=== PATIENT | male | born 1980 | race Caucasian/White ===

== ENCOUNTER 2019-08-16 16:36 | Inpatient (IN) | payer OTHER ==
[~2019-08-16] VITALS: Ht 198.1 cm; Wt 114.3 kg
--- NOTE | 2019-08-16 16:41 | NUR ---
PT CALLED IN LOBBY, NO ANSWER
--- NOTE | 2019-08-16 16:57 | NUR ---
DR FULLER EVALUATING PT AT BEDSIDE
[2019-08-16 16:59] VITALS: BP 134/72
--- NOTE | 2019-08-16 17:06 | NUR ---
38/m BIB self c/o of foot pain, ulcer on right second digit and left hallux . The right second digit is swollen upon observation. Observed BLE swelling. Palpable pedal pulses bilaterally. Pt. reports having ulcers x 1 year and states oozing from ulcer site 2 days ago. Pt reports 9/10 pain.PmHx of gastric bypass x 4 years. Blood Sugar 134. Pt. is homeless and frequently walking.
--- NOTE | 2019-08-16 17:18 | NUR ---
LAB AT BEDSIDE
[2019-08-16 17:35] LABS: BASOPHILS # (AUTO) 0.1 K/uL (0.00-0.22); BASOPHILS % (AUTO) 1.2 % (0.0-2.0); EOSINOPHILS # (AUTO) 0.2 K/uL (0-0.4); EOSINOPHILS % (AUTO) 2.8 % (0.0-4.0); HEMATOCRIT 37.9 % (36-52); HEMOGLOBIN 12.9 g/dL (12.0-18.0); LYMPHOCYTES # (AUTO) 1.6 K/uL (2.0-11.5); LYMPHOCYTES % (AUTO) 25.2 % (20.5-51.1); MEAN CORPUSCULAR HEMOGLOBIN 33 pg (27-31); MEAN CORPUSCULAR HGB CONC 34 g/dL (33-37); MEAN CORPUSCULAR VOLUME 96.6 fL (80-94); MONOCYTES # (AUTO) 0.5 K/uL (0.8-1.0); MONOCYTES % (AUTO) 8.4 % (1.7-9.3); NEUTROPHILS # (AUTO) 3.9 K/uL (1.8-7.7); NEUTROPHILS % (AUTO) 62.4 % (42.2-75.2); PLATELET COUNT (AUTO) 208 K/uL (140-450); RED BLOOD CELL COUNT(AUTO) 3.93 MIL/uL (4.20-6.10); RED CELL DISTRIBUTION WIDTH 13.5 % (11.6-13.7); WHITE BLOOD COUNT (AUTO) 6.2 K/uL (4.8-10.8)
--- NOTE | 2019-08-16 17:41 | NUR ---
XRAY AT BEDSIDE
[2019-08-16 17:44] LABS: PROTHROMBIN TIME 10.9 secs (10.8-13.4)
[2019-08-16 17:47] LABS: ALBUMIN 3.6 g/dL (3.4-5.0); ANION GAP 11.5 (8-16); CARBON DIOXIDE 28.9 mmol/L (21-32); CREATININE 0.8 mg/dL (0.6-1.3); POTASSIUM 3.4 mmol/L (3.5-5.1); TOTAL BILIRUBIN 0.8 mg/dL (0.0-1.0)
--- NOTE | 2019-08-16 18:36 | NUR ---
Pictures taken of foot ulcers bilaterally.
[2019-08-16] MEDS ORDERED: DOCUSATE SODIUM 100 MG GELCAP PO PRN (18:40)
[2019-08-16] MEDS ORDERED: ONDANSETRON 4 MG/2 ML VIAL IM/IVP PRN (18:40)
[2019-08-16] MEDS ORDERED: LORazepam 2 MG/ML VIAL IM/IVP PRN (18:40)
[2019-08-16] MEDS ORDERED: HYDROcodone/APAP 5/325 MG 1 TAB TAB PO PRN (18:40)
[2019-08-16] MEDS ORDERED: ACETAMINOPHEN 325 MG TAB PO PRN (18:40)
[2019-08-16 18:49] LABS: PROTHROMBIN TIME 10.9 secs (10.8-13.4)
[2019-08-16 19:11] LABS: PHOSPHORUS 3.5 mg/dL (2.5-4.9); THYROID STIMULATING HORMONE 2.35 uIU/mL (0.34-3.74)
[2019-08-16 19:15] VITALS: BP 109/67
--- NOTE | 2019-08-16 19:15 | NUR ---
ADMITTED 38 Y/O MALE VIA WHEELCHAIR FROM ER. ENDORSED BY AM SHIFT RN. PATIENT IS AOX4. VITAL SIGNS TAKEN AND RECORDED. DENIES PAIN. PATIENT IS ON MODIFIED CODE. NKA. TELE MONITOR ATTACHED. NOTED 2ND DIGIT R FOOT ULCER AND 4TH DIGIT LEFT FOOT ULCER. BILATERAL LEG SWELLING NOTED. WITH IV HEPLOCK ON L ARM GAUGE 20. INTACT AND PATENT. PATIENT WAS ABLE TO TRANSFER FROM WHEELCHAIR TO BED BY HIMSELF. NO SOB NOTED. RESPIRATION EVEN AND UNLABORED. PLAN OF CARE DISCUSSED. KEPT COMFORTABLE. CALL LIGHT WITHIN REACH AT ALL TIMES.
--- NOTE | 2019-08-16 19:18 | NUR ---
Patient will be admitted to care of . Admited to Med-SUrg. Will go to room 104B. Belongings list completed and brought with pt. VSS. Report given to RN. Alicia.
[2019-08-16] MEDS ORDERED: POTASSIUM CHLORIDE 10 MEQ TABER PO SCH (21:55)
[2019-08-16] MEDS ORDERED: CLINDAMYCIN 600 MG/4 ML VIAL ONE (21:56)
[2019-08-16] MEDS: NACL 0.9% 1,000 ML IV SCH (22:12)
--- NOTE | 2019-08-16 22:12 | NUR ---
ADMINISTER DUE MEDS PER MD ORDER. NO A/R NOTED. NO C/O PAIN. CALL LIGHT WITHIN REACH.
[2019-08-16] MEDS: CLINDAMYCIN 600 MG in DEXTROSE 5% 50 ML IV SCH (22:13)
[2019-08-16] MEDS: DOCUSATE SODIUM 100 MG GELCAP PO SCH (22:31)
[2019-08-16] MEDS: LACTOBACILLUS RHAMNOSUS GG 1 EACH CAP PO SCH (22:35)
--- NOTE | 2019-08-16 23:00 | NUR ---
SCD MACHINE NOT APPLIED. PT ALREADY HAD HEPARIN SUBQ GIVEN X 1. BLE WITH EDEMA.
--- NOTE | 2019-08-16 23:49 | NUR ---
ADMINISTER K DUR 20 MEQ PO GIVEN ORDERED FOR POTASSIUM 3.4. TOLERATED WELL.
[2019-08-17] VITALS: BP 112/79
--- NOTE | 2019-08-17 | NUR ---
PATIENT IS ON NPO POST MIDNIGHT.
--- NOTE | 2019-08-17 01:15 | NUR ---
PATIENT IS ASLEEP. NO DISTRESS NOTED.
[2019-08-17 01:20] LABS: APPEARANCE,URINE CLOUDY (CLEAR); BILIRUBIN,URINE NEGATIVE (NEGATIVE); BLOOD, URINE 3+ (NEGATIVE); COLOR,URINE BROWN (YELLOW); LEUKOCYTE ESTERASE ,URINE NEGATIVE (NEGATIVE); NITRITE, URINE NEGATIVE (NEGATIVE); UGLUCOSE NEGATIVE (NEGATIVE)
[2019-08-17 01:26] LABS: BARBITURATE, URINE NEG. ng/ml (NEG <=200); BENZODIAZEPINE, URINE NEG. ng/mL (NEG <=200); CANNABINOID, URINE NEG. ng/mL (NEG <=50); COCAINE, URINE NEG. ng/mL (NEG <=300); OPIATE, URINE NEG. ng/mL (NEG <=2000); PHENCYCLIDINE SCREEN,URINE NEG. ng/mL (NEG <=25)
[2019-08-17 01:32] LABS: RBC,URINE TOO NUMEROUS TO COUN /HPF (0-5)
[2019-08-17 01:33] LABS: CALCIUM OXALATE CRYSTALS,UR 0-5 /HPF (None Seen)
--- NOTE | 2019-08-17 03:00 | NUR ---
PATIENT IS SLEEPING. RESPIRATION EVEN AND UNLABORED. NOT IN ANY ACUTE DISTRESS.
[2019-08-17] MEDS ORDERED: CLINDAMYCIN 600 MG/4 ML VIAL ONE (04:58)
[2019-08-17] MEDS: CLINDAMYCIN 600 MG in DEXTROSE 5% 50 ML IV SCH ×3 (05:14→20:42)
--- NOTE | 2019-08-17 05:17 | NUR ---
ADMINISTERED CLEOCIN IVPB. TOLERATED WELL. NO A/R NOTED.
[2019-08-17 07:20] LABS: BASOPHILS % (AUTO) 0.4 % (0.0-2.0); EOSINOPHILS # (AUTO) 0.2 K/uL (0-0.4); EOSINOPHILS % (AUTO) 4.8 % (0.0-4.0); HEMATOCRIT 37.7 % (36-52); HEMOGLOBIN 12.6 g/dL (12.0-18.0); LYMPHOCYTES # (AUTO) 1.8 K/uL (2.0-11.5); LYMPHOCYTES % (AUTO) 38.6 % (20.5-51.1); MEAN CORPUSCULAR HEMOGLOBIN 33 pg (27-31); MEAN CORPUSCULAR HGB CONC 33 g/dL (33-37); MONOCYTES # (AUTO) 0.4 K/uL (0.8-1.0); MONOCYTES % (AUTO) 8.5 % (1.7-9.3); NEUTROPHILS # (AUTO) 2.2 K/uL (1.8-7.7); NEUTROPHILS % (AUTO) 47.7 % (42.2-75.2); PLATELET COUNT (AUTO) 204 K/uL (140-450); RED BLOOD CELL COUNT(AUTO) 3.84 MIL/uL (4.20-6.10); RED CELL DISTRIBUTION WIDTH 13.7 % (11.6-13.7); WHITE BLOOD COUNT (AUTO) 4.6 K/uL (4.8-10.8)
--- NOTE | 2019-08-17 07:20 | NUR ---
ENDORSEMENT GIVEN AT BEDSIDE TO AM SHIFT RN FOR CONTINUITY OF CARE. NOT IN ANY ACUTE DISTRESS.
--- NOTE | 2019-08-17 07:36 | NUR ---
SHIFT REPORT RECEIVED FROM SWITCHING CLERK NURSE. PT IS IN BED AT THIS TIME. HAVE A BEDSIDE SCAN. NO COMPLAINS OF PAIN. CALL LIGHT IN REACH.
[2019-08-17 07:42] LABS: ANION GAP 7.4 (8-16); CARBON DIOXIDE 31.7 mmol/L (21-32); CREATININE 0.7 mg/dL (0.6-1.3); POTASSIUM 4.1 mmol/L (3.5-5.1)
[2019-08-17 08:00] VITALS: BP 108/69
[2019-08-17] MEDS: LACTOBACILLUS RHAMNOSUS GG 1 EACH CAP PO SCH (08:27)
[2019-08-17] MEDS: DOCUSATE SODIUM 100 MG GELCAP PO SCH (08:27)
--- NOTE | 2019-08-17 09:30 | NUR ---
PT IS RESTING IN BED. NO DISTRESS NOTED. NO COMPLAINS OF PAIN. WILL CONTINUE TO MONITOR. CALL LIGHT IN REACH.
--- NOTE | 2019-08-17 10:30 | NUR ---
PT WAS TAKEN TO SHOWER IN WHEELCHAIR. PT AMBULATED FROM WHEELCHAIR TO SHOWER. SHOWER DONE. NO DISTRESS. NO COMPLAINS OF PAIN. PT BACK IN ROOM. WILL CONTINUE TO MONITOR. CALL LIGHT IN REACH.
[2019-08-17] MEDS: NACL 0.9% 1,000 ML IV SCH ×2 (11:31→20:51)
--- NOTE | 2019-08-17 12:47 | NUR ---
PT IS RESTING IN BED. NO DISTRESS NOTED. NO COMPLAINS OF PAIN. WILL CONTINUE TO MONITOR. CALL LIGHT IN REACH.
--- NOTE | 2019-08-17 14:54 | NUR ---
PT IS SLEEPING IN BED. PT RESPONSIVE WHEN CALLED. NO DISTRESS NOTED. NO COMPLAINS OF PAIN. PT SAYS HE HUNGRY. RELAYED INFO TO . PT WILL HAVE A SANDWICH. WILL CONTINUE TO MONITOR. CALL LIGHT IN REACH.
[2019-08-17 16:00] VITALS: BP 120/66
--- NOTE | 2019-08-17 18:48 | NUR ---
PT IS LYING IN BED. PT HAD DINNER. NO DISTRESS NOTED. WILL CONTINUE TO MONITOR. CALL LIGHT IN REACH.
--- NOTE | 2019-08-17 19:34 | NUR ---
SHIFT REPORT GIVEN TO CERTIFIED VEHICLE FIRE INVESTIGATOR NURSE. PT IS IN STABLE CONDITION. CALL LIGHT IN REACH.
--- NOTE | 2019-08-17 19:35 | NUR ---
RECEIVED PT IN STABLE CONDITION FROM AM NURSE. PT IS AWAKE,ALERT.ORIENTED X4. MED SURG PT. WITH NO C/O ANY DISCOMFORT NOR PAIN NOTED. WITH IVF INFUSING WELL ON THE LT HAND G#22. CLEAR AND PATENT. BLE EDEMA, RT FOOT 2 BD DIGIT TOE ULCER , [employer] OPERATORS. NO DRAIN NOTED. PLAN OF CARE DISCUSSED AND VERBALIZED UNDERSTANDING. BED ON LOW POSITION. CALL LIGHT AND URINALS WITHIN EASY REACH.WILL CONTINUE TO MONITOR.
--- NOTE | 2019-08-17 21:00 | NUR ---
DUE ANTIBIOTICS GIVEN ORDERED. NO C/O ANY DISCOMFORT.
--- NOTE | 2019-08-17 23:00 | NUR ---
MADE ROUNDS . ASLEEP. NO S/S OF ANY DISCOMFORT/PAIN NOTED.
[2019-08-18] VITALS: BP 127/75
--- NOTE | 2019-08-18 | NUR ---
INSTRUCTED PT ABOUT NPO STATUS FOR SURGERY . VERBALIZED UNDERSTANDING.
--- NOTE | 2019-08-18 02:00 | NUR ---
MADE ROUNDS. PT SLEEPING. NO S/S OF ANY DISCOMFORT NOTED.
[2019-08-18] MEDS: NACL 0.9% 1,000 ML IV SCH ×2 (03:56→18:06)
--- NOTE | 2019-08-18 04:00 | NUR ---
PT HAS NO C/O ANY PAIN DURING THE NIGHT.
[2019-08-18 04:32] LABS: BASOPHILS # (AUTO) 0.1 K/uL (0.00-0.22); BASOPHILS % (AUTO) 0.9 % (0.0-2.0); EOSINOPHILS # (AUTO) 0.2 K/uL (0-0.4); EOSINOPHILS % (AUTO) 3.5 % (0.0-4.0); HEMATOCRIT 41.5 % (36-52); HEMOGLOBIN 13.7 g/dL (12.0-18.0); LYMPHOCYTES # (AUTO) 1.8 K/uL (2.0-11.5); LYMPHOCYTES % (AUTO) 32.3 % (20.5-51.1); MEAN CORPUSCULAR HEMOGLOBIN 33 pg (27-31); MEAN CORPUSCULAR HGB CONC 33 g/dL (33-37); MEAN CORPUSCULAR VOLUME 98.6 fL (80-94); MONOCYTES # (AUTO) 0.5 K/uL (0.8-1.0); MONOCYTES % (AUTO) 9.8 % (1.7-9.3); NEUTROPHILS # (AUTO) 2.9 K/uL (1.8-7.7); NEUTROPHILS % (AUTO) 53.5 % (42.2-75.2); PLATELET COUNT (AUTO) 203 K/uL (140-450); RED BLOOD CELL COUNT(AUTO) 4.21 MIL/uL (4.20-6.10); RED CELL DISTRIBUTION WIDTH 13.9 % (11.6-13.7); WHITE BLOOD COUNT (AUTO) 5.5 K/uL (4.8-10.8)
[2019-08-18 04:48] LABS: MAGNESIUM 1.8 mg/dL (1.8-2.4); PHOSPHORUS 3.9 mg/dL (2.5-4.9)
[2019-08-18 04:51] LABS: ANION GAP 6.1 (8-16); CARBON DIOXIDE 34.3 mmol/L (21-32); CREATININE 0.9 mg/dL (0.6-1.3); POTASSIUM 4.4 mmol/L (3.5-5.1)
[2019-08-18] MEDS: CLINDAMYCIN 600 MG in DEXTROSE 5% 50 ML IV SCH ×3 (04:53→21:01)
--- NOTE | 2019-08-18 06:18 | NUR ---
KEPT NPO SINCE NM FOR SURGERY TODAY. IVF INFUSING WELL.
--- NOTE | 2019-08-18 07:10 | NUR ---
PT SCHEDULE FOR SURGERY AT 0830. PRE-OP CHECKLIST DONE. ENDORSED PT IN STABLE CONDITION TO AM NURSE.
--- NOTE | 2019-08-18 07:15 | NUR ---
RECEIVED PT FROM HOUSE OFFICER NURSE, MARIANN, PT IS AOX4, AWAKE AND SEATED ON THE BED WITH SAFETY PRECAUTION ENFORCED, IV LINE ON THE LEFT AC G. 20 WITH NS INFUSING AT 60ML/HR, INTACT, PT HAS A RT FOOT DRESSING IN PLACE, ON NPO FOR A SCHEDULED DEBRIDEMENT AND POSSIBLE AMPUTATION OF THE RT 2ND TOE DIGIT, PT DENIES PAIN ADN NO SIG OF DISTRESS NOTED. WILL MONITOR PT.
[2019-08-18 08:00] VITALS: BP 124/68
[2019-08-18] MEDS: DOCUSATE SODIUM 100 MG GELCAP PO SCH (08:26)
[2019-08-18] MEDS: LACTOBACILLUS RHAMNOSUS GG 1 EACH CAP PO SCH (08:26)
--- NOTE | 2019-08-18 08:26 | NUR ---
PT WAS GIVEN THE SCHEDULED AM MEDICATIONS NOW, TOLERATE, WILL MONITOR PT.
--- NOTE | 2019-08-18 08:35 | NUR ---
PT IS OFF THE UNIT NOW FOR A SURGERY OF DEBRIDEMENT AND POSSIBLE AMPUTATION OF THE RT 2ND TOE DIGIT, V/S STABLE.
--- NOTE | 2019-08-18 08:50 | NUR ---
PATIENT HAS BEEN SCREENED AND CATEGORIZED HIGH NUTRITION RISK. PATIENT WILL BE SEEN WITHIN 1-2 DAYS OF ADMISSION. 08/18/[address]
[2019-08-18] MEDS ORDERED: BUPIVACAINE-MPF 0.25% 30 ML VIAL INJ ONE (09:14)
[2019-08-18] MEDS ORDERED: KETOROLAC 30 MG/ML VIAL ONE (09:15)
[2019-08-18] MEDS ORDERED: SEVOFLURANE 250 ML BTL INH ONE (09:15)
[2019-08-18] MEDS ORDERED: DEXAMETHASONE 4 MG/ML VIAL ONE (09:15)
[2019-08-18] MEDS ORDERED: ONDANSETRON 4 MG/2 ML VIAL ONE (09:15)
[2019-08-18] MEDS ORDERED: PROPOFOL 200 MG/20 ML VIAL IV ONE (09:15)
[2019-08-18] MEDS: LIDOCAINE 1% 500 MG/50 ML VIAL ONE ×2 (09:18→14:25)
[2019-08-18] MEDS ORDERED: LACTATED RINGERS 1,000 ML IV SCH (09:47)
[2019-08-18] MEDS ORDERED: ONDANSETRON 4 MG/2 ML VIAL IVP PRN (09:50)
[2019-08-18] MEDS ORDERED: HYDROmorphone 1 MG/ML AMP IVP PRN (09:50)
[2019-08-18] MEDS ORDERED: MEPERIDINE 25 MG/ML SYR IVP PRN (09:50)
[2019-08-18] MEDS ORDERED: diphenhydrAMINE 50 MG/ML VIAL IVP PRN (09:50)
--- NOTE | 2019-08-18 11:20 | NUR ---
PT IS BACK TO ROOM NOW FROM A DEBRIDEMENT OF THE RT FOOT, V/S IS 104/57, PULSE IS 56, TEMPERATURE IS 97.2 AND RESPIRATION IS 18/MIN, SATURATING AT 97% AT RA,NO SIGN OF DISTRESS NOTED AND PT IS SLEEPING NOW.
--- NOTE | 2019-08-18 12:28 | NUR ---
PT WAS GIVEN CLEOCIN IVPB NOW, FNS CONSULT IS GOING ALSO AND PT IS RESPONDING APPROPRIATELY.
--- NOTE | 2019-08-18 15:35 | NUR ---
08/18/19 RD INITIAL ASSESSMENT COMPLETED PLEASE REFER TO NUTRITION ASSESSMENT UNDER CARE ACTIVITY FOR ESTIMATED NUTRITIONAL NEEDS. 1. CONTINUE [facility] DIET TOLERATED 2. RECOMMEND JI BID FOR WOUND HEALING 3. DM EDUCATION WAS OFFERED, BUT DECLINED 4. RD TO FOLLOW-UP 3-5 DAYS, MODERATE RISK KIANA GUZMAN RD
[2019-08-18 16:00] VITALS: BP 118/59
--- NOTE | 2019-08-18 16:19 | NUR ---
Packing Room Supervisor Note: SW received physician's orders for [facility] for outpatient follow up. SW provided patient low cost health care resources. Patient verbalized appreciation. No further needs identified.
[2019-08-18] MEDS ORDERED: MUPIROCIN CA NASAL 2% 1GM TUBE NS SCH (16:35)
[2019-08-18] MEDS ORDERED: CHLORHEXADINE GLUC 2% CLOTH TP SCH (16:35)
[2019-08-18] MEDS: MORPHINE SULFATE 2 MG/ML SYR IVP PRN (18:08)
--- NOTE | 2019-08-18 18:17 | NUR ---
MORPHINE GIVEN FOR PAIN SCALE OF 10/10. PT. IS GRIMACING AND VERBALIZES ALOT OF PAIN. AFTERNOON MEDICATIONS GIVEN. WILL CONTINUE TO MONITOR.
--- NOTE | 2019-08-18 19:25 | NUR ---
ENDORSED PT. TO VP RESEARCH NURSE FOR CONTINUITY OF CARE.
--- NOTE | 2019-08-18 19:27 | NUR ---
RECEIVED FROM AM RN IN BED SLEEPING. MEDICATED WITH PAIN RELIEVER BY AM RN JUST AWHILE AGO. CARE WILL BE CONTINUED. CALL LIGHT WITH IN REACH . CONTACT PRECAUTION OBSERVED. IVF SITE INTACT AND NO INFILTRATION NOTED. WITH NS AT 60 ML/H. DX. FOOT ULCERS.
--- NOTE | 2019-08-18 19:42 | NUR ---
ENDORSED PT. TO BONE DENSITY TECHNICIAN NURSE FOR CONTINUITY OF CARE.
--- NOTE | 2019-08-18 22:56 | NUR ---
SLEEPING AT THIS TIME. ABLE TO USE CALL LIGHT FOR HELP. WOKE UP EASILY WHEN I INFORMED HIM THAT I WAS GOING TO ADMINISTER HIS IVP ABT. ABLE TO VERBALIZE WELL IN [place]. CNAS IN HERE TO HELP HIM WITH HIS PERSONAL HYGIENE. NO COMPLAINTS OF ANY PAIN AT THIS TIME.
[2019-08-19 00:03] VITALS: BP 99/63
[2019-08-19 01:13] VITALS: BP 118/71
[2019-08-19] MEDS: MORPHINE SULFATE 2 MG/ML SYR IVP PRN ×2 (01:19→09:50)
--- NOTE | 2019-08-19 01:29 | NUR ---
AWAKE AT THIS TIME RT REQUESTED FOR PAIN RELIEVER FOR RIGHT TOE ULCERS. ABLE TO VERBALIZE NEEDS WELL. A/O X 4. CLEAR SPEECH. MEDICATED WITH MORPHINE 1 MG IVP ORDERED.
--- NOTE | 2019-08-19 03:00 | NUR ---
SLEEPING WELL. NO RESTLESSNESS. CALL LIGHT AT BEDSIDE.
[2019-08-19] MEDS: CLINDAMYCIN 600 MG in DEXTROSE 5% 50 ML IV SCH ×2 (04:25→12:38)
[2019-08-19 06:09] LABS: BASOPHILS % (AUTO) 0.3 % (0.0-2.0); EOSINOPHILS # (AUTO) 0.1 K/uL (0-0.4); EOSINOPHILS % (AUTO) 1.4 % (0.0-4.0); HEMATOCRIT 40.7 % (36-52); HEMOGLOBIN 13.6 g/dL (12.0-18.0); LYMPHOCYTES # (AUTO) 0.6 K/uL (2.0-11.5); MEAN CORPUSCULAR HEMOGLOBIN 33 pg (27-31); MEAN CORPUSCULAR HGB CONC 33 g/dL (33-37); MONOCYTES # (AUTO) 0.5 K/uL (0.8-1.0); MONOCYTES % (AUTO) 6.3 % (1.7-9.3); NEUTROPHILS # (AUTO) 7.4 K/uL (1.8-7.7); PLATELET COUNT (AUTO) 201 K/uL (140-450); RED CELL DISTRIBUTION WIDTH 13.4 % (11.6-13.7); WHITE BLOOD COUNT (AUTO) 8.7 K/uL (4.8-10.8)
[2019-08-19 06:26] LABS: ANION GAP 11.4 (8-16); CARBON DIOXIDE 28.2 mmol/L (21-32); CREATININE 0.7 mg/dL (0.6-1.3); POTASSIUM 3.6 mmol/L (3.5-5.1)
--- NOTE | 2019-08-19 06:30 | NUR ---
AWAKE AND ALERT. ABLE TO VERBALIZE NEEDS WELL. SLEPT WELL THIS SHIFT.MEDICATED WITH PAIN RELIEVER X 1. NO BLEEDING TO DRESSING. ABLE TO USE CALL LIGHT FOR HELP. WILL ENDORSE TO AM RN FOR CONTINUITY OF CARE. NO COMPLAINTS DONE.
[2019-08-19 06:41] LABS: MAGNESIUM 1.6 mg/dL (1.8-2.4); PHOSPHORUS 3.5 mg/dL (2.5-4.9)
--- NOTE | 2019-08-19 07:05 | NUR ---
RECEIVED PT FROM SALVAGER NURSERICA, PT IS ASLEEP AND LYING ON THE BED WITH DRESSING IN PLACE ON THE RT FOOT S/P I&D, IV LINE ON THE LEFT AC G. 20 NS AT 60ML/HR, VISIBLE CHEST RISE, ON ROOM AIR AND NO SIGN OF DISTRESS NOTED AND WILL MONITOR PT.
[2019-08-19 08:00] VITALS: BP 118/63
[2019-08-19] MEDS: DOCUSATE SODIUM 100 MG GELCAP PO SCH (09:39)
[2019-08-19] MEDS: LACTOBACILLUS RHAMNOSUS GG 1 EACH CAP PO SCH (09:39)
--- NOTE | 2019-08-19 09:53 | NUR ---
WITH C/O OF PAIN ON RIGHT FOOT 01/18. MORPHINE GIVEN ORDERED V/S CHECKED PRIOR TO ADMIN, V/S WNL
--- NOTE | 2019-08-19 12:25 | NUR ---
CLEOCIN IVPB GIVEN ORDERED
--- NOTE | 2019-08-19 13:15 | NUR ---
PT VERBALIZED THAT HE WANTED TO LEAVE AGAINST MEDICAL ADVICE.DR. TORRES IS IN THE PT'S ROOM NOW AND TALKING TO PT REGARDING THE RISK OF LEAVING AMA AND THE CONSEQUENCES ALIGNED TO THE WOUND ON THE RT FOOT AND PT VERBALIZED UNDERSTANDING AND STILL INSIST ON LEAVING. PT VERBALIZED TO DR. TORRES WELL THAT HE WILL JUST MAKE SURE THAT HE CLEANS AND CHECK HIS WOUND OFTEN, PT VERBALIZED WANTING TO LEAVE AMA FOR FAMILY REASONS. PT SIGNED AMA FORM AND WAS GIVEN INSTRUCTIONS ON THE CARE FOR THE RT FOOT ULCER AND PT VERBALIZED UNDERSTANDING, SUPPLIES FOR CLEANING WERE GIVEN TO PT WELL.
[2019-08-19] MEDS ORDERED: CLIN300C2 PO (13:32)
[2019-08-19] MEDS ORDERED: LACT10CA PO (13:32)
--- NOTE | 2019-08-19 14:46 | NUR ---
PT LEFT AGAINST MEDICAL ADVICE NOW ACCOMPANIED BY GIRLFRIEND, IV LINE AND ARM BAND REMOVED. PT HAS STABLE VITAL SIGNS.
[2019-08-20] MEDS ORDERED: SULF-59 PO (18:47)
== END 2019-08-19 14:46 | disposition left against medical advice (07) | DRG 630 ==
LOC: MED 16:36 → MTU 18:49
PROVIDERS: ADMIT General Practice; ATTEND General Practice
PROC: 0QBQ0ZZ Excision of Right Toe Phalanx, Open Approach (ICD-10-PCS; principal; 2019-08-18 08:30)
DX: E11.621 Type 2 diabetes mellitus with foot ulcer (principal); L03.031 Cellulitis of right toe; E87.6 Hypokalemia; I10 Essential (primary) hypertension; F17.210 Nicotine dependence, cigarettes, uncomplicated; L97.519 Non-pressure chronic ulcer of other part of right foot with unspecified severity; F15.90 Other stimulant use, unspecified, uncomplicated; E86.0 Dehydration; R31.9 Hematuria, unspecified; E83.42 Hypomagnesemia; Z53.29 Procedure and treatment not carried out because of patient's decision for other reasons; Z59.0 Homelessness; Z98.84 Bariatric surgery status; Z83.3 Family history of diabetes mellitus; Z71.51 Drug abuse counseling and surveillance of drug abuser
CPT/HCPCS: 36415; 73630; 76770; 80048; 80053; 80305; 81001; 83036; 83735; 84100; 84443; 85025; 85610; 85651; 85730; 86140; 87040; 87070; 87075; 87081; 87086; 87186; 87205; 93925; 93970; 99285; J1100; J1644; J1885; J2001; J2270; J2405; J2704; J3490; J7030; J7060; Q0092

== ENCOUNTER 2019-08-25 16:23 | Inpatient (IN) | payer MEDICAID, OTHER ==
[~2019-08-25] VITALS: Ht 198.1 cm; Wt 113.4 kg
[~2019-08-25 16:23] MED LIST: CLIN300C2 PO; LACT10CA PO; SULF-59 PO
[2019-08-25 16:48] VITALS: BP 117/64
--- NOTE | 2019-08-25 17:00 | NUR ---
38/M TO ED WITH DRAINAGE TO RT #2 TOE. PT REPORTS HAVING INCISION AND DRAINGE PERFORMED HERE LAST WEEK. OPEN WOUND NOTED TO RT #2 TOE. PT IS AMBULATORY WITH CANE. [place] BED [place] [facility]
[2019-08-25] MEDS ORDERED: LEVOFLOXACIN 750 MG/D5W PREMIX 150 ML IV ONE (17:30)
[2019-08-25 18:18] LABS: BASOPHILS # (AUTO) 0.1 K/uL (0.00-0.22); BASOPHILS % (AUTO) 1.9 % (0.0-2.0); EOSINOPHILS # (AUTO) 0.2 K/uL (0-0.4); EOSINOPHILS % (AUTO) 3.5 % (0.0-4.0); HEMATOCRIT 39.5 % (36-52); HEMOGLOBIN 13.3 g/dL (12.0-18.0); LYMPHOCYTES # (AUTO) 1.6 K/uL (2.0-11.5); LYMPHOCYTES % (AUTO) 31.4 % (20.5-51.1); MEAN CORPUSCULAR HEMOGLOBIN 33 pg (27-31); MEAN CORPUSCULAR HGB CONC 34 g/dL (33-37); MEAN CORPUSCULAR VOLUME 96.7 fL (80-94); MONOCYTES # (AUTO) 0.4 K/uL (0.8-1.0); MONOCYTES % (AUTO) 8.3 % (1.7-9.3); NEUTROPHILS # (AUTO) 2.8 K/uL (1.8-7.7); NEUTROPHILS % (AUTO) 54.9 % (42.2-75.2); PLATELET COUNT (AUTO) 278 K/uL (140-450); RED BLOOD CELL COUNT(AUTO) 4.08 MIL/uL (4.20-6.10); RED CELL DISTRIBUTION WIDTH 13.8 % (11.6-13.7); WHITE BLOOD COUNT (AUTO) 5.1 K/uL (4.8-10.8)
[2019-08-25] MEDS ORDERED: ONDANSETRON 4 MG/2 ML VIAL IVP PRN (18:20)
[2019-08-25] MEDS ORDERED: ACETAMINOPHEN 325 MG TAB PO PRN (18:20)
[2019-08-25] MEDS ORDERED: BACTRIM IV PER PHARMACY MC PRN (18:20)
[2019-08-25] MEDS ORDERED: HYDROcodone/APAP 7.5/325 MG 1 TAB PO PRN (18:20)
[2019-08-25 18:36] LABS: ALBUMIN 3.6 g/dL (3.4-5.0); ANION GAP 9.2 (8-16); CARBON DIOXIDE 31.6 mmol/L (21-32); POTASSIUM 3.8 mmol/L (3.5-5.1); TOTAL BILIRUBIN 0.6 mg/dL (0.0-1.0)
--- NOTE | 2019-08-25 18:45 | NUR ---
Patient will be admitted to care of DR DARLING. Admited to MED/SURG. Will go to room 115. Belongings list completed. Report to LYRIC PANDYA.
--- NOTE | 2019-08-25 18:48 | NUR ---
RECEIVED PATIENT FROM ER, TRANSPORTED TO UNIT VIA W/C. REPORT GIVEN BY LYRIC HIDALGO. PATIENT IS ALERT, ORIENTED X4. INTRODUCED SELF. PLANS OF CARE DISCUSSED. PATIENT STABLE. WILL ENDORSE TO JUNIOR NET DEVELOPER FOR CONTINUITY OF CARE.
[2019-08-25 19:15] VITALS: BP 113/64
[2019-08-25] MEDS: NACL 0.9% 1,000 ML IV SCH (19:37)
--- NOTE | 2019-08-25 19:37 | NUR ---
NS NO BAR CODE VERIFIED WVandana PANDYA RN AM SHIFT, TO GIVE AT 50 ML/HR
[2019-08-25 20:06] LABS: PHOSPHORUS 4.1 mg/dL (2.5-4.9)
[2019-08-25] MEDS ORDERED: TRIMETH IV ONE (20:13)
[2019-08-25] MEDS ORDERED: SULFAMETH IV ONE (20:13)
[2019-08-25] MEDS ORDERED: TRIMETH IV SCH (21:00)
[2019-08-25] MEDS ORDERED: DEXTROSE 5% IV SCH (21:00)
[2019-08-25] MEDS ORDERED: SULFAMETH IV SCH (21:00)
[2019-08-25] MEDS: DOCUSATE SODIUM 100 MG GELCAP PO SCH (21:22)
--- NOTE | 2019-08-25 22:00 | NUR ---
PATIENT C/O OF IV PAINFUL 03/20 ON PRESENT SITE R AC; D/C IV SITE; NO SWELLING; NO INFILTRATION NOTED. RE=INSERTED ANOTHER LINE ON THE RIGHT FOREARM G 22, PATENT AND INTACT
[2019-08-26] VITALS: BP 99/47
--- NOTE | 2019-08-26 00:19 | NUR ---
INFORMED DR. TORRES ON HX DIABETES; NO NEW ORDERS; PER DIET MANAGEMENT/CONTROL AT THIS TIME; NO ACCUCHECK ALSO ORDERED.DR. WILEY
[2019-08-26 03:30] LABS: APPEARANCE,URINE CLEAR (CLEAR); BILIRUBIN,URINE NEGATIVE (NEGATIVE); BLOOD, URINE 2+ (NEGATIVE); COLOR,URINE YELLOW (YELLOW); LEUKOCYTE ESTERASE ,URINE NEGATIVE (NEGATIVE); NITRITE, URINE NEGATIVE (NEGATIVE); UGLUCOSE NEGATIVE (NEGATIVE)
[2019-08-26 04:04] LABS: BARBITURATE, URINE NEGATIVE ng/ml (NEG <=200)
[2019-08-26 04:05] LABS: BENZODIAZEPINE, URINE NEGATIVE ng/mL (NEG <=200); CANNABINOID, URINE NEGATIVE ng/mL (NEG <=50); COCAINE, URINE NEGATIVE ng/mL (NEG <=300); OPIATE, URINE NEGATIVE ng/mL (NEG <=2000); PHENCYCLIDINE SCREEN,URINE NEGATIVE ng/mL (NEG <=25)
[2019-08-26 04:35] LABS: RBC,URINE 20-50 /HPF (0-5); WBC,URINE 0-5 /HPF (0-5)
[2019-08-26 06:57] LABS: BASOPHILS % (AUTO) 0.6 % (0.0-2.0); EOSINOPHILS # (AUTO) 0.3 K/uL (0-0.4); EOSINOPHILS % (AUTO) 5.6 % (0.0-4.0); HEMATOCRIT 37.6 % (36-52); HEMOGLOBIN 12.4 g/dL (12.0-18.0); LYMPHOCYTES % (AUTO) 45.2 % (20.5-51.1); MEAN CORPUSCULAR HEMOGLOBIN 32 pg (27-31); MEAN CORPUSCULAR HGB CONC 33 g/dL (33-37); MEAN CORPUSCULAR VOLUME 97.9 fL (80-94); MONOCYTES # (AUTO) 0.5 K/uL (0.8-1.0); MONOCYTES % (AUTO) 10.1 % (1.7-9.3); NEUTROPHILS # (AUTO) 1.7 K/uL (1.8-7.7); NEUTROPHILS % (AUTO) 38.5 % (42.2-75.2); PLATELET COUNT (AUTO) 255 K/uL (140-450); RED BLOOD CELL COUNT(AUTO) 3.84 MIL/uL (4.20-6.10); RED CELL DISTRIBUTION WIDTH 13.7 % (11.6-13.7); WHITE BLOOD COUNT (AUTO) 4.5 K/uL (4.8-10.8)
[2019-08-26 06:59] LABS: ANION GAP 9.4 (8-16); CARBON DIOXIDE 29.7 mmol/L (21-32); CREATININE 0.8 mg/dL (0.6-1.3); POTASSIUM 4.1 mmol/L (3.5-5.1)
[2019-08-26 07:02] LABS: MAGNESIUM 1.9 mg/dL (1.8-2.4); PHOSPHORUS 4.2 mg/dL (2.5-4.9)
--- NOTE | 2019-08-26 07:22 | NUR ---
RECEIVED BEDSIDE REPORT FROM DEPOSITING MACHINE OPERATOR NURSE KALA FOR CONTINUITY OF CARE. PT IS AWAKE AND USING THE BATHROOM AT THIS TIME. RESPIRATION EVEN AND UNLABORED ON RA. DENIED PAIN, SOB AND DIZZINESS. NO SIGNS OF DISTRESS NOTED. IV ON L WRIST 22G, CLEAN AND INTACT, INFUSING PER MD ORDER. WOUND ON R 2ND TOE NOTED, COVERED WITH DRESSING, DRESSING CLEAN AND DRY, OTHERWISE SKIN DRY AND CLEAN. PT IS CONTINENT AND ABLE TO AMBULATE WITH CANE. SAFETY MEASURES IN PLACE. CONTACT PRECAUTION IN PLACE AND SIGN POSTED. BED IN LOW POSITION AND CALL LIGHT WITH REACH. INSTRUCTED PT TO USE THE CALL LIGHT FOR ANY ASSISTANCE AND PT AWARE.
[2019-08-26 08:00] VITALS: BP 100/53
--- NOTE | 2019-08-26 08:34 | NUR ---
PATIENT HAS BEEN SCREENED AND CATEGORIZED HIGH NUTRITION RISK. PATIENT WILL BE SEEN WITHIN 1-2 DAYS OF ADMISSION. 08/26/19-08/27/[address]
[2019-08-26] MEDS: DOCUSATE SODIUM 100 MG GELCAP PO SCH ×2 (09:34→21:15)
[2019-08-26] MEDS: SULFAMETH IV SCH ×2 (09:34→21:05)
[2019-08-26] MEDS: DEXTROSE 5% IV SCH ×2 (09:34→21:05)
[2019-08-26] MEDS: TRIMETH IV SCH ×2 (09:34→21:05)
--- NOTE | 2019-08-26 09:34 | NUR ---
ADMINISTERED MEDS PER MD ORDER, MEDS EDUCATION PROVIDED AND PT VERBALIZED OK. DR LIEBERMAN AND ISAIAS ARE ASSESSING TOE WOUND AT BEDSIDE. NO SIGNS OF DISTRESS NOTED. SAFETY MEASURES IN PLACE. BED IN LOW POSITION AND CALL LIGHT WITHIN REACH. INSTRUCTED PT TO USE THE CALL LIGHT FOR ANY ASSISTANCE AND PT AWARE. Addendum: 08/26/19 at 1149 by Emma Conway RN DR HURTADO
--- NOTE | 2019-08-26 10:30 | NUR ---
DR ESPARZA EXPLAINED TO PT THE RISKS AND BENEFITS OF PROCEDURE AT BEDSIDE. PT WAS AWARE AND AGREEABLE TO PROCEDURE. CONSENT OBTAINED. PT AWAKE AND RESTING ON BED. NO SIGNS OF DISTRESS NOTED. SAFETY MEASURES IN PLACE. Addendum: 08/26/19 at 1118 by Emma Conway RN DR HURTADO
--- NOTE | 2019-08-26 11:14 | NUR ---
PT AWAKE AND RESTING ON BED WITH TV ON. NO SIGNS OF DISTRESS NOTED. DENIED PAIN, SOB AND DIZZINESS. SAFETY MEASURES IN PLACE. BED IN LOW POSITION AND CALL LIGHT WITHIN REACH. INSTRUCTED PT TO USE THE CALL LIGHT FOR ANY ASSISTANCE AND PT AWARE.
--- NOTE | 2019-08-26 11:18 | NUR ---
Cripple Worker Note: Basic Screen: Yes High Risk DC Screen Amaya: CLARISSA Desir Relationship: Pre-Admission Living Arrangements: Lives with Other Prior ADL Independent Current Home Health Name/Tel: N/A Current DME/02 Name/Tel: N/A Current Hospice Name/Tel: N/A Current Dialysis Name/Tel: N/A Healthcare Decision Maker: Patient Advance Directive No - REFUSED Physician Orders for Life Sustaining Treatment Form No Patient/Family Have Educational Needs No Information Taught: Community Resources Person Taught: Patient Teaching Tools: Verbal Factors Affecting Learning: None Participation Level: Active Evaluation: Verbalizes Understanding Needs Additional Education: No Discipline: Case Mgt/Social Svcs Tentative Discharge Plan/Destination: No Needs Identified Will require assistance post discharge: No Referred to Outsole Handler: No Tentative Discharge Plan Summary: Patient is a 38-year-old male admitted for an open wound. Patient has PMHX of diabetes and hypertension. Patient was admitted from home where he lives with his parents, sister, children, and children's mom. SW met with patient at bedside to verify demographics at bedside. Pateint reported history of bipolar disorder and schizophrenia. Patient stated that he is currently enrolling with IE and is in the process of obtaining mental health services. SW provided mental health resources to patient. Patient also reported methamphetamine use. SW assessed for risk. Patient reported that he does not use substances around his daughter. SW provided substance abuse resources. Patient stated that he intends to find a sober living when his IEHP application is completed. Patient's tentative discharge plan is to return home. Signature: LEXX Landrum Date: Aug 26, 2019 Time: 11:17
--- NOTE | 2019-08-26 11:18 | NUR ---
DR HURTADO Addendum: 08/26/19 at 1149 by Emma Conway RN WRONG ROMINA
--- NOTE | 2019-08-26 12:12 | NUR ---
DISCHARGE PLANNING: THIS IS A 38 Y/O MALE PATIENT FROM HOME, WHO CAME IN DUE TO RIGHT FOOT PAIN. INITIAL DIAGNOSIS OF OPEN WOUND. PAST MEDICAL HISTORY INCLUDE DIABETES AND HTN. CURRENT LABS INCLUDE WBC 4.5, H/H 12.4/37.6, NA/K 139/3.8, BUN/CREA 17/1.0. UDS SHOWED POSITIVE FOR AMPHETAMINES. MRSA NARES, BLOOD AND WOUND C/S PENDING. FOOT X RAY SHOWED PROBABLE ACUTE COMMINUTED FRACTURE MARCOS THE SECOND PROXIMAL AND MID PHALANGES OF THE RIGHT FOOT. PODIATRY CONSULT IN PLACE. ON TRIMETHOPRIM/SULFA. DC PLAN BACK TO HOME ONCE STABLE. Addendum: 08/28/19 at 1557 by Cheryl Matos CM RECEIVED A DC ORDER TO HOME WITH HOME HEALTH FOR WOUND CARE CONTACTED [facility] AT [phone], SPOKE TO EVANGELINA MARTINEZ. SHE STATED TO GO AHEAD AND FAX REFERRAL. REFERRAL SENT TO [facility] AT [phone]. WILL FOLLOW UP. Addendum: 08/29/19 at 0812 by Cheryl Matos CM PER EVANGELINA PENA [facility], THEY ARE ABLE TO TAKE THE PATIENT. START OF CARE WILL BE SUNDAY. SHE STATED THEY SPOKE TO DR SCOTT AND IS RECOMMENDING TO SEE THE PATIENT ON SUNDAY AFTER FOLLOW UP AT TO HIS CLINIC.
--- NOTE | 2019-08-26 13:11 | NUR ---
PT AWAKE AND AMBULATING TO THE BATHROOM. PT TOOK OFF HIS GOWN AND STATED "I DON'T WANT TO WEAR IT RIGHT NOW. IT MAKES ME UNCOMFORTABLE." HEAD FILTER TANK TENDER HELPER CHANGED DRESSING ON TOE AND DRESSING IS CLEAN AND DRY. DENIED PAIN, SOB AND DIZZINESS. NO ACUTE DISTRESS NOTED. SAFETY MEASURES IN PLACE. INSTRUCTED PT TO USE THE CALL LIGHT FOR ANY ASSISTANCE AND PT AWARE.
--- NOTE | 2019-08-26 14:02 | NUR ---
08/26/19 RD INITIAL ASSESSMENT COMPLETED PLEASE REFER TO NUTRITION ASSESSMENT UNDER CARE ACTIVITY FOR ESTIMATED NUTRITIONAL NEEDS. 1. CONTINUE REGULAR DIET TOLERATED 2. RECOMMEND ENSURE MAX BID 3. RECOMMEND MULTIVITAMIN AND VITAMIN C [address] TO FOLLOW-UP 5-7 DAYS, LOW RISK IKANA GUZMAN, RD
[2019-08-26] MEDS: NACL 0.9% 1,000 ML IV SCH (14:11)
--- NOTE | 2019-08-26 14:11 | NUR ---
STARTED A NEW BAG OF IVF NS AND INFUSING 97838 ML/HR. PT AWAKE AND LOOKING AT HIS PHONE. NO SIGNS OF ACUTE DISTRESS NOTED. SAFETY MEASURES IN PLACE. INSTRUCTED PT TO USE THE CALL LIGHT FOR ANY ASSISTANCE AND PT AWARE. Addendum: 08/26/19 at 1414 by Emma Conway RN 50 ML/HR
--- NOTE | 2019-08-26 15:13 | NUR ---
PT IS SITTING UP ON CHAIR BY BEDSIDE AND LOOKING AT HIS PHONE. DENIED PAIN, SOB AND DIZZINESS. NO SIGNS OF DISTRESS NOTED. SAFETY MEASURES IN PLACE. CALL LIGHT WITHIN REACH. INSTRUCTED PT TO USE THE CALL LIGHT FOR ANY ASSISTANCE AND PT AWARE.
[2019-08-26 16:00] VITALS: BP 116/64
--- NOTE | 2019-08-26 17:20 | NUR ---
PT IS AMBULATING AROUND THE ROOM WITH POST-OP BOOT. DRESSING ON TOE SLIGHTLY LOOSEN, REINFORCED AND SECURED DRESSING. PT TOLERATED WELL. DENIED PAIN, SOB AND DIZZINESS. NO SIGNS OF DISTRESS NOTED. SAFETY MEASURES IN PLACE. INSTRUCTED PT TO USE THE CALL LIGHT FOR ANY ASSISTANCE AND PT AWARE.
--- NOTE | 2019-08-26 18:22 | NUR ---
PT REQUESTED FOR APPLE, CALLED [facility] AND SPOKE WITH FURNITURE UPHOLSTERER. PER FURNITURE UPHOLSTERER, WILL DELIVER APPLE FOR PT. INFORMED PT AND PT AWARE. PT AWAKE AND RESTING ON BED AT THIS TIME. NO SIGNS OF DISTRESS NOTED. SAFETY MEASURES IN PLACE. INSTRUCTED PT TO USE THE CALL LIGHT FOR ANY ASSISTANCE AND PT AWARE.
--- NOTE | 2019-08-26 19:28 | NUR ---
ENDORSED PT AT BEDSIDE TO STEAM SETTER NURSE JENNIFFER FOR CONTINUITY OF CARE. PT IS IN STABLE CONDITION.
--- NOTE | 2019-08-26 19:29 | NUR ---
RECEIVED BEDSIDE REPORT FROM AM SHIFT NURSE. PATIENT IS SITTING ON A CHAIR AT BEDSIDE, AWAKE AND ALERT. NO SOB OR DISTRESS NOTED, ON ROOM AIR. IV ACCESS ON LEFT WRIST 22 GAUGE, PATENT AND INTACT. PATIENT IS AMBULATORY WITH A CANE. PATIENT NOTED WITH DRY DRESSING ON RIGHT 2ND TOE, RIGHT FOOT. BED IN LOW, SAFETY MEASURES IN PLACE. INITIAL ASSESSMENT DONE. CALL LIGHT PLACED WITHIN PATIENT REACH. WILL CONTINUE TO MONITOR PATIENT.
--- NOTE | 2019-08-26 22:40 | NUR ---
ROUNDS DONE. NO DISTRESS NOTED. CALL LIGHT WITHIN PATIENT REACH. WILL CONTINUE TO MONITOR PATIENT.
[2019-08-27 00:10] VITALS: BP 120/68
--- NOTE | 2019-08-27 00:10 | NUR ---
VITALS TAKEN AT THIS TIME. NO SOB OR DISTRESS NOTED. CALL LIGHT PLACED WITHIN PATIENT REACH. WILL CONTINUE TO MONITOR PATIENT.
--- NOTE | 2019-08-27 02:22 | NUR ---
ROUNDS DONE. NO DISTRESS NOTED. CALL LIGHT WITHIN PATIENT REACH. WILL CONTINUE TO MONITOR PATIENT.
--- NOTE | 2019-08-27 04:15 | NUR ---
ROUNDS DONE. VISIBLE CHEST RISE AND FALL NOTED. CALL LIGHT WITHIN PATIENT REACH. WILL CONTINUE TO MONITOR PATIENT.
--- NOTE | 2019-08-27 06:37 | NUR ---
PATIENT IN STABLE CONDITION. VISIBLE CHEST RISE AND FALL NOTED. NO SOB OR DISTRESS. CALL LIGHT WITHIN PATIENT REACH. WILL ENDORSE TO AM SHIFT NURSE FOR CONTINUITY OF CARE.
[2019-08-27 07:04] LABS: BASOPHILS # (AUTO) 0.1 K/uL (0.00-0.22); BASOPHILS % (AUTO) 1.2 % (0.0-2.0); EOSINOPHILS # (AUTO) 0.2 K/uL (0-0.4); EOSINOPHILS % (AUTO) 3.7 % (0.0-4.0); HEMATOCRIT 38.6 % (36-52); HEMOGLOBIN 12.9 g/dL (12.0-18.0); LYMPHOCYTES # (AUTO) 1.9 K/uL (2.0-11.5); LYMPHOCYTES % (AUTO) 47.3 % (20.5-51.1); MEAN CORPUSCULAR HEMOGLOBIN 32 pg (27-31); MEAN CORPUSCULAR HGB CONC 33 g/dL (33-37); MEAN CORPUSCULAR VOLUME 97.3 fL (80-94); MONOCYTES # (AUTO) 0.4 K/uL (0.8-1.0); MONOCYTES % (AUTO) 9.8 % (1.7-9.3); NEUTROPHILS # (AUTO) 1.6 K/uL (1.8-7.7); PLATELET COUNT (AUTO) 269 K/uL (140-450); RED BLOOD CELL COUNT(AUTO) 3.97 MIL/uL (4.20-6.10); RED CELL DISTRIBUTION WIDTH 13.5 % (11.6-13.7); WHITE BLOOD COUNT (AUTO) 4.1 K/uL (4.8-10.8)
[2019-08-27 07:11] LABS: MAGNESIUM 1.9 mg/dL (1.8-2.4); PHOSPHORUS 4.1 mg/dL (2.5-4.9)
[2019-08-27 07:13] LABS: ANION GAP 9.4 (8-16); CARBON DIOXIDE 31.6 mmol/L (21-32); CREATININE 0.8 mg/dL (0.6-1.3)
--- NOTE | 2019-08-27 07:22 | NUR ---
RECEIVED REPORT FROM WIRELESS RETAIL MANAGER. AOX4, AMBULATORY, DENIES PAIN, NO SOB, ON ROOM AIR. IV ON LEFT WRIST 22 G RUNNING IVF NS 50CC/HR. ISOLATION PRECAUTION OBSERVED. REVIEWED POC WITH PT, PT VERBALIZED UNDERSTANDING. CALL LIGHT WITHIN REACH. WILL CONT TO MONITOR
[2019-08-27 08:00] VITALS: BP 111/56
[2019-08-27] MEDS: MULTIVITAMIN 1 TAB PO SCH (09:30)
[2019-08-27] MEDS: DOCUSATE SODIUM 100 MG GELCAP PO SCH ×2 (09:30→21:43)
[2019-08-27] MEDS: ASCORBIC ACID 500 MG TAB PO SCH (09:30)
--- NOTE | 2019-08-27 09:30 | NUR ---
DUE MEDS GIVEN. TOLERATED WELL. IN STABLE CONDITION. WILL CONTINUE TO MONITOR
[2019-08-27] MEDS: SULFAMETH IV SCH ×2 (09:56→22:30)
[2019-08-27] MEDS: TRIMETH IV SCH ×2 (09:56→22:30)
[2019-08-27] MEDS: DEXTROSE 5% IV SCH ×2 (09:56→22:30)
[2019-08-27] MEDS ORDERED: LORazepam 2 MG/ML VIAL IM/IVP PRN (10:00)
[2019-08-27] MEDS: NACL 0.9% 1,000 ML IV SCH (10:38)
--- NOTE | 2019-08-27 10:45 | NUR ---
PT IN SHOWER AT THIS TIME. WILL CONTINUE TO MONITOR
--- NOTE | 2019-08-27 11:15 | NUR ---
WOUND CARE CONSULT NOT DONE, PT. EXAM BY DR. HURTADO. PLAN FOR AMPUTATION.
--- NOTE | 2019-08-27 12:40 | NUR ---
IV DISLODGED WHILE PT WAS USING THE BATHROOM. NO INJURY AT SITE NOTED. PT IN STABLE CONDITION. WILL CONTINUE TO MONITOR.
--- NOTE | 2019-08-27 15:10 | NUR ---
ULTRASOUND AT BEDSIDE. IN STABLE CONDITION.
[2019-08-27 16:00] VITALS: BP 108/61
--- NOTE | 2019-08-27 17:30 | NUR ---
STARTED NEW IV AT THIS TIME 22 G RIGHT FOREARM. PT TOLERATED WELL.
--- NOTE | 2019-08-27 19:16 | NUR ---
ENDORSED TO RN ACUTE NURSE FO CONTINUITY OF CARE. PT IN STABLE CONDITION
--- NOTE | 2019-08-27 19:17 | NUR ---
RECD. RESTING IN BED, AWAKE, A/OX4. RESPIRATION EVEN AND UNLABORED. IV OF NS AT 50 ML/HR INFUSING LEFT AC G22. BILATERAL LOWER EXTREMITIES WITH SWOLLEN. RIGHT 2ND TOE WITH WOUND COVERED WITH DRSG DRY AND INTACT. USES THE URINAL, ABLE TO AMBULATE WITH ASSISTANCE. PLAN OF CARE FOR THE SHIFT DISCUSSED. VERBALIZED UNDERSTANDING. DENIES PAIN 0/10.
--- NOTE | 2019-08-27 21:00 | NUR ---
STILL WATCHING TV. DUE PO MEDICATION GIVEN.
--- NOTE | 2019-08-27 22:55 | NUR ---
Patient's Plan of Care was discussed and reviewed with DEAF AND HARD OF HEARING TEACHER: []
--- NOTE | 2019-08-27 22:58 | NUR ---
Patient's Plan of Care was discussed and reviewed with CHIEF HOSPITAL ADMINISTRATOR: SOWMYA NEVES
--- NOTE | 2019-08-27 23:00 | NUR ---
COMPLAINT OF FEELING DIZZY WHEN GETTING OUT OF BED. INSTRUCTED TO SIT ON BED FOR A FEW MINUTES AND CALL NURSE BEFORE AMBULATING TO PREVENT FALL. VERBALIZED UNDERSTANDING.
[2019-08-28] VITALS: BP 106/49
--- NOTE | 2019-08-28 01:00 | NUR ---
SLEEPING COMFORTABLY IN BED.
--- NOTE | 2019-08-28 04:00 | NUR ---
AWARE OF PLANNED SURGERY, REMINDED NOT TO TAKE ANYTHING BY MOUTH.
[2019-08-28] MEDS: NACL 0.9% 1,000 ML IV SCH (06:16)
[2019-08-28 06:49] LABS: ANION GAP 9.7 (8-16); CARBON DIOXIDE 29.1 mmol/L (21-32); CREATININE 0.8 mg/dL (0.6-1.3); POTASSIUM 3.8 mmol/L (3.5-5.1)
[2019-08-28 06:56] LABS: MAGNESIUM 1.9 mg/dL (1.8-2.4)
[2019-08-28 06:58] LABS: BASOPHILS % (AUTO) 0.9 % (0.0-2.0); EOSINOPHILS # (AUTO) 0.1 K/uL (0-0.4); EOSINOPHILS % (AUTO) 3.1 % (0.0-4.0); HEMATOCRIT 37.1 % (36-52); HEMOGLOBIN 12.6 g/dL (12.0-18.0); LYMPHOCYTES # (AUTO) 1.8 K/uL (2.0-11.5); LYMPHOCYTES % (AUTO) 48.3 % (20.5-51.1); MEAN CORPUSCULAR HEMOGLOBIN 33 pg (27-31); MEAN CORPUSCULAR HGB CONC 34 g/dL (33-37); MEAN CORPUSCULAR VOLUME 96.6 fL (80-94); MONOCYTES # (AUTO) 0.3 K/uL (0.8-1.0); MONOCYTES % (AUTO) 7.8 % (1.7-9.3); NEUTROPHILS # (AUTO) 1.5 K/uL (1.8-7.7); NEUTROPHILS % (AUTO) 39.9 % (42.2-75.2); PLATELET COUNT (AUTO) 265 K/uL (140-450); RED BLOOD CELL COUNT(AUTO) 3.84 MIL/uL (4.20-6.10); RED CELL DISTRIBUTION WIDTH 13.4 % (11.6-13.7); WHITE BLOOD COUNT (AUTO) 3.6 K/uL (4.8-10.8)
--- NOTE | 2019-08-28 07:19 | NUR ---
CONDITION REMAIN STABLE. ENDORSED TO AM SHIFT NURSE FOR CONTINUITY OF CARE.
--- NOTE | 2019-08-28 07:20 | NUR ---
RECEIVED REPORT FROM NIGHT NURSE FOR CONTINUITY OF CARE, PT NPO FOR SURGERY, PT [id number], PT IS STABLE, PT HAS LEFT AC 22G INFUSING NS AT 50 ML/H, PT HAS RIGHT SECOND TOE WOUND, THE TOE IS WRAP AND DRESSING DRY AND INTACT, INTRODUCE SELF, UPDATE WHITEBOARD, SAFETY MEASURES IN PLACE, CALL LIGHT WITHIN REACH, WILL CONTINUE TO MONITOR.
[2019-08-28] MEDS ORDERED: BUPIVACAINE-MPF 0.25% 30 ML VIAL INJ ONE (07:28)
[2019-08-28] MEDS ORDERED: LIDOCAINE 1% 500 MG/50 ML VIAL ONE (07:28)
[2019-08-28] MEDS ORDERED: HYDR-5122 PO (07:30)
--- NOTE | 2019-08-28 07:38 | NUR ---
PT OFF UNIT FOR SURGERY
[2019-08-28] MEDS ORDERED: ONDANSETRON 4 MG/2 ML VIAL ONE (07:52)
[2019-08-28] MEDS ORDERED: PROPOFOL 200 MG/20 ML VIAL IV ONE (07:52)
[2019-08-28] MEDS ORDERED: DESFLURANE 240 ML BTL INH ONE (07:52)
[2019-08-28] MEDS ORDERED: fentaNYL 0.05 MG/ML VIAL ONE (07:52)
[2019-08-28 08:00] VITALS: BP 104/56
--- NOTE | 2019-08-28 09:30 | NUR ---
PT BACK IN THE ROOM S/P RIGHT SECOND TOE AMPUTATION, RIGHT LEG IS BANDAGE, DRESSING DRY AND INTACT, PT HAS LEG ELEVATED, PT IS STABLE, NO SIGNS OF DISTRESS NOTED, WILL MONITOR VITAL SIGNS PER PROTOCOL, CALL LIGHT WITHIN REACH.
[2019-08-28] MEDS: ASCORBIC ACID 500 MG TAB PO SCH (09:49)
[2019-08-28] MEDS: DOCUSATE SODIUM 100 MG GELCAP PO SCH (09:49)
[2019-08-28] MEDS: MULTIVITAMIN 1 TAB PO SCH (09:49)
[2019-08-28] MEDS: TRIMETH IV SCH (09:53)
[2019-08-28] MEDS: SULFAMETH IV SCH (09:53)
[2019-08-28] MEDS: DEXTROSE 5% IV SCH (09:53)
--- NOTE | 2019-08-28 11:00 | NUR ---
PT RESTING IN BED, NO SIGNS OF DISTRESS NOTED, CALL LIGHT WITHIN REACH.
--- NOTE | 2019-08-28 13:00 | NUR ---
PT SITTING IN BED, TALKING ON THE PHONE, PT IS STABLE, RESPIRATIONS ARE EVEN AND UNLABORED ON ROOM AIR, CALL LIGHT WITHIN REACH.
[2019-08-28] MEDS ORDERED: SULF-59 PO (13:06)
[2019-08-28] MEDS ORDERED: LACT-81 PO (13:07)
[2019-08-28] MEDS ORDERED: INFLUENZA VACCINE QUAD 0.5 ML SYR IMVAC PRN (15:15)
--- NOTE | 2019-08-28 15:15 | NUR ---
PT DISCHARGED FROM HOSPITAL. PT WALKED TO LOBBY WITHOUT INFORMING NURSING, PT FOUND SITTING IN LOBBY, DISCHARGE INSTRUCTIONS GIVEN, PT VERBALIZED UNDERSTANDING, PT REFUSED TO RETURN TO HIS ROOM FOR HIS FLU VACCINE, PT REFUSED VACCINE, PT DISCHARGED TO FAMILY, PT STABLE
== END 2019-08-28 15:15 | disposition home or self-care (01) | DRG 793 ==
LOC: MED 16:23 → MTU 17:31
PROVIDERS: ADMIT General Practice; ATTEND General Practice
PROC: 0Y6R0Z0 Detachment at Right 2nd Toe, Complete, Open Approach (ICD-10-PCS; principal; 2019-08-28 08:00)
DX: T81.31XA Disruption of external operation (surgical) wound, not elsewhere classified, initial encounter (principal); E11.621 Type 2 diabetes mellitus with foot ulcer; S92.511A Displaced fracture of proximal phalanx of right lesser toe(s), initial encounter for closed fracture; S92.521A Displaced fracture of middle phalanx of right lesser toe(s), initial encounter for closed fracture; L97.519 Non-pressure chronic ulcer of other part of right foot with unspecified severity; E66.3 Overweight; X58.XXXA Exposure to other specified factors, initial encounter; E11.69 Type 2 diabetes mellitus with other specified complication; M86.671 Other chronic osteomyelitis, right ankle and foot; F17.210 Nicotine dependence, cigarettes, uncomplicated; I10 Essential (primary) hypertension; F15.10 Other stimulant abuse, uncomplicated; Z79.899 Other long term (current) drug therapy; Z83.3 Family history of diabetes mellitus; Z83.49 Family history of other endocrine, nutritional and metabolic diseases; Z82.49 Family history of ischemic heart disease and other diseases of the circulatory system; Z68.28 Body mass index [BMI] 28.0-28.9, adult; Z91.19 Patient's noncompliance with other medical treatment and regimen; Y93.89 Activity, other specified; Y92.89 Other specified places as the place of occurrence of the external cause; Y99.8 Other external cause status
CPT/HCPCS: 36415; 71045; 73630; 76770; 80048; 80053; 80305; 81001; 82150; 83605; 83690; 83735; 84100; 84484; 85025; 85610; 85651; 85730; 86140; 87040; 87070; 87075; 87081; 87186; 87205; 88305; 88311; 93970; 96365; 99285; J1956; J2001; J2060; J2405; J2704; J3010; J3490; J7030; J7060; Q0092

== ENCOUNTER 2020-02-01 08:53 | Emergency (ER) | payer MEDICAID, OTHER ==
[~2020-02-01] VITALS: Ht 182.9 cm; Wt 108.9 kg
[~2020-02-01 08:53] MED LIST changes: -CLIN300C2 PO; +HYDR-5122 PO; +LACT-81 PO; -LACT10CA PO
--- NOTE | 2020-02-01 08:53 | NUR ---
PATIENT TO BED 4 BY EMS.
[2020-02-01 08:56] VITALS: BP 127/79
--- NOTE | 2020-02-01 09:00 | NUR ---
39 YEAR OLD MALE BIBA FOR LEFT EYE PAIN. PT STATES HE WAS RECYCLING AND THEN DUST GOT INTO EYE AND GRADUALLY GOT MORE IRRITATED. TODAY WHEN PT WOKE UP EYE IS SWOLLEN, PAINFUL, AND DISCHARGE PRESENT. PT WITH DIFFICULTY TO OPEN EYES. PT AOX4, BREATHING EVEN AND UNLABORED, SKIN WARM AND DRY. BED IN LOWEST POSITION, LOCKED, BED RAIL UPX1. LIGHTS DIMMED. PMH - DENIES ALLERGIES - NKA
--- NOTE | 2020-02-01 09:08 | NUR ---
PT TAKEN BY CT
[2020-02-01] MEDS ORDERED: KETOROLAC 30 MG/ML VIAL IM ONE (09:15)
[2020-02-01] MEDS ORDERED: VANCOMYCIN 1,000 MG in DEXTROSE 5% 250 ML IV ONE (09:45)
[2020-02-01] MEDS ORDERED: NACL 0.9% 1,000 ML IV ONE (09:45)
[2020-02-01] MEDS ORDERED: metroNIDAZOLE 500 MG/NS PREMIX 100 ML IV ONE (09:45)
[2020-02-01] MEDS ORDERED: cefTRIAXone 1,000 MG VIAL ONE (09:50)
[2020-02-01 10:02] LABS: BASOPHILS # (AUTO) 0.1 K/uL (0.00-0.22); BASOPHILS % (AUTO) 2.7 % (0.0-2.0); EOSINOPHILS # (AUTO) 0.1 K/uL (0-0.4); EOSINOPHILS % (AUTO) 2.4 % (0.0-4.0); HEMATOCRIT 36.9 % (36-52); HEMOGLOBIN 12.3 g/dL (12.0-18.0); LYMPHOCYTES # (AUTO) 1.3 K/uL (2.0-11.5); MEAN CORPUSCULAR HEMOGLOBIN 33 pg (27-31); MEAN CORPUSCULAR HGB CONC 34 g/dL (33-37); MEAN CORPUSCULAR VOLUME 98.7 fL (80-94); MONOCYTES # (AUTO) 0.5 K/uL (0.8-1.0); MONOCYTES % (AUTO) 10.3 % (1.7-9.3); NEUTROPHILS # (AUTO) 2.5 K/uL (1.8-7.7); NEUTROPHILS % (AUTO) 55.6 % (42.2-75.2); PLATELET COUNT (AUTO) 345 K/uL (140-450); RED BLOOD CELL COUNT(AUTO) 3.74 MIL/uL (4.20-6.10); RED CELL DISTRIBUTION WIDTH 13.8 % (11.6-13.7); WHITE BLOOD COUNT (AUTO) 4.5 K/uL (4.8-10.8)
[2020-02-01 10:26] LABS: ANION GAP 10.5 (8-16); CARBON DIOXIDE 30.3 mmol/L (21-32); CREATININE 0.7 mg/dL (0.6-1.3); POTASSIUM 3.8 mmol/L (3.5-5.1); TOTAL BILIRUBIN 0.6 mg/dL (0.0-1.0)
--- NOTE | 2020-02-01 10:27 | NUR ---
PT STATES UNABLE TO URINATE AT THIS TIME
[2020-02-01] MEDS ORDERED: MORPHINE SULFATE 4 MG/ML SYR IVP ONE (10:40)
--- NOTE | 2020-02-01 10:50 | NUR ---
PT SIGNED CONSENT FOR TRANSFER
[2020-02-01] MEDS ORDERED: VANCOMYCIN 1,000 MG VIAL ONE (10:53)
--- NOTE | 2020-02-01 11:05 | NUR ---
[facility] TRANSPORT AT BEDSIDE OF PT
--- NOTE | 2020-02-01 11:10 | NUR ---
ERMD MADE AWARE PT WAS UNABLE TO URINATE THROUGHOUT SHIFT, STATES IS OK
--- NOTE | 2020-02-01 11:25 | NUR ---
Patient to be transferred to [place] [facility]. Is being transferred due to higher level of care. Receiving facility has accepting physician and available space. ER physician has signed transfer form. Patient or responsible alliance party has agreed to transfer and signed form. Patient belongings inventoried and will be sent with patient. Copy of nursing notes, lab reports, EKG, Physicians Orders and X-rays to be sent with patient. Report called to Carmine RN at receiving facility. [facility] ambulance service has been called for transfer and is currently at bedside.
[2020-02-01 11:30] VITALS: BP 106/60
--- NOTE | 2020-02-01 11:30 | NUR ---
[facility] transport has left with patient to next facility
== END 2020-02-01 11:30 | disposition short-term general hospital (02) ==
LOC: MED 08:53
DX: H05.012 Cellulitis of left orbit (principal); I10 Essential (primary) hypertension; Z79.899 Other long term (current) drug therapy
CPT/HCPCS: 36415; 70480; 80053; 83605; 85025; 87040; 96365; 96367; 96368; 96372; 96375; 99284; J0696; J1885; J2270; J3370; J3490

== ENCOUNTER 2020-06-19 18:52 | Emergency (ER) | payer OTHER ==
[~2020-06-19] VITALS: Ht 198.1 cm; Wt 115.7 kg
[2020-06-19 19:45] VITALS: BP 106/64
--- NOTE | 2020-06-19 19:48 | NUR ---
TO [facility] VIA W/C
--- NOTE | 2020-06-19 19:50 | NUR ---
SEEN AND EXAMINED BY LUCAS WITH ORDERS, CARRIED OUT
[2020-06-19] MEDS ORDERED: MORPHINE SULFATE 4 MG/ML SYR IVP ONE (20:05)
[2020-06-19 20:18] LABS: BASOPHILS # (AUTO) 0.1 K/uL (0.00-0.22); BASOPHILS % (AUTO) 0.5 % (0.0-2.0); EOSINOPHILS % (AUTO) 0.2 % (0.0-4.0); HEMATOCRIT 39.4 % (36-52); HEMOGLOBIN 13.5 g/dL (12.0-18.0); LYMPHOCYTES # (AUTO) 1.2 K/uL (2.0-11.5); MEAN CORPUSCULAR HEMOGLOBIN 33 pg (27-31); MEAN CORPUSCULAR HGB CONC 34 g/dL (33-37); MEAN CORPUSCULAR VOLUME 95.2 fL (80-94); MONOCYTES # (AUTO) 1.7 K/uL (0.8-1.0); MONOCYTES % (AUTO) 12.7 % (1.7-9.3); NEUTROPHILS # (AUTO) 10.4 K/uL (1.8-7.7); NEUTROPHILS % (AUTO) 77.6 % (42.2-75.2); PLATELET COUNT (AUTO) 306 K/uL (140-450); RED BLOOD CELL COUNT(AUTO) 4.14 MIL/uL (4.20-6.10); RED CELL DISTRIBUTION WIDTH 13.4 % (11.6-13.7); WHITE BLOOD COUNT (AUTO) 13.4 K/uL (4.8-10.8)
[2020-06-19 20:38] LABS: ALBUMIN 3.2 g/dL (3.4-5.0); ANION GAP 11.4 (8-16); CARBON DIOXIDE 28.1 mmol/L (21-32); CREATININE 0.7 mg/dL (0.6-1.3); POTASSIUM 3.5 mmol/L (3.5-5.1); TOTAL BILIRUBIN 0.9 mg/dL (0.0-1.0)
[2020-06-19] MEDS ORDERED: HYDROcodone/APAP 5/325 MG 1 TAB TAB PO ONE (21:00)
[2020-06-19] MEDS ORDERED: KETOROLAC 30 MG/ML VIAL IM ONE (21:00)
[2020-06-19] MEDS ORDERED: KETOROLAC 15 MG/ML VIAL ONE (21:10)
[2020-06-19] MEDS ORDERED: MORPHINE SULFATE 4 MG/ML SYR IM ONE (21:10)
[2020-06-19] MEDS ORDERED: MORPHINE SULFATE 2 MG/ML SYR ONE (21:11)
[2020-06-19] MEDS ORDERED: MORPHINE SULFATE 2 MG/ML SYR IVP ONE (21:20)
[2020-06-19] MEDS ORDERED: KETOROLAC 15 MG/ML VIAL IVP ONE (21:20)
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
--- NOTE | 2020-06-19 21:45 | NUR ---
URINE COLLECTED AND WALKED TO LAB
[2020-06-19] MEDS ORDERED: cefTRIAXone 500 MG in LIDOCAINE MPF 1% 1 ML IM ONE (22:15)
[2020-06-19 22:18] LABS: APPEARANCE,URINE SL CLOUDY (CLEAR); BILIRUBIN,URINE NEGATIVE (NEGATIVE); BLOOD, URINE 3+ (NEGATIVE); COLOR,URINE DARK YELLOW (YELLOW); LEUKOCYTE ESTERASE ,URINE 2+ (NEGATIVE); NITRITE, URINE NEGATIVE (NEGATIVE); UGLUCOSE TRACE (NEGATIVE)
--- NOTE | 2020-06-19 22:27 | NUR ---
ASSISITED PT TO RESTROOM
[2020-06-19] MEDS ORDERED: cefTRIAXone 1,000 MG VIAL ONE (22:28)
[2020-06-19 22:36] LABS: RBC,URINE 20-50 /HPF (0-5); WBC,URINE TOO MANY TO COUNT /HPF (0-5)
[2020-06-19 22:59] VITALS: BP 112/65
--- NOTE | 2020-06-19 23:00 | NUR ---
Patient discharged with v/s stable. Written and verbal after care instructions given and explained. Patient alert, oriented and verbalized understanding of instructions. Wheel Chair Assisted with to car. All questions addressed prior to discharge. ID band removed. Patient advised to follow up with PMD. Rx of DOXYCYCLINE given. Patient educated on indication of medication including possible reaction and side effects. Opportunity to ask questions provided and answered.
== END 2020-06-19 23:00 | disposition home or self-care (01) ==
LOC: MED 18:52
DX: N45.1 Epididymitis (principal); N50.812 Left testicular pain; I10 Essential (primary) hypertension; F17.210 Nicotine dependence, cigarettes, uncomplicated; F12.10 Cannabis abuse, uncomplicated; Z71.6 Tobacco abuse counseling; Z79.899 Other long term (current) drug therapy
CPT/HCPCS: 36415; 76870; 80053; 81001; 83605; 85025; 87086; 87491; 96372; 96374; 96375; 99284; J0696; J1885; J2270

== ENCOUNTER 2021-04-15 17:27 | Emergency (ER) | payer OTHER, SELFPAY ==
[~2021-04-15] VITALS: Ht 198.1 cm; Wt 124.7 kg
[2021-04-15 17:30] VITALS: BP 132/71
[2021-04-15] MEDS ORDERED: LIDOCAINE MPF 1% 10 MG/ML VIAL INJ ONE (17:30)
[2021-04-15] MEDS ORDERED: BACITRACIN OINT 500 UNITS/GM PKT TP ONE (17:30)
[2021-04-15] MEDS ORDERED: IBUPROFEN 600 MG TAB PO ONE (17:30)
--- NOTE | 2021-04-15 17:34 | NUR ---
BIBA BLS TO ER BED 2
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
--- NOTE | 2021-04-15 17:55 | NUR ---
DEJA VALLEJO AT BEDSIDE FOR PROCEDURE
[2021-04-15] MEDS ORDERED: IBUP-2213 PO (18:00)
--- NOTE | 2021-04-15 18:17 | NUR ---
Patient discharged with v/s stable. Written and verbal after care instructions ABOUT LACERATION CARE given and explained. Patient alert, oriented and verbalized understanding of instructions. Ambulatory with steady gait. All questions addressed prior to discharge. ID band removed. Patient advised to follow up with PMD. Rx of IBUPROFEN given. Patient educated on indication of medication including possible reaction and side effects. Opportunity to ask questions provided and answered.
== END 2021-04-15 18:16 | disposition home or self-care (01) ==
LOC: MED 17:27
DX: S61.021A Laceration with foreign body of right thumb without damage to nail, initial encounter (principal); J45.909 Unspecified asthma, uncomplicated; E11.9 Type 2 diabetes mellitus without complications; I10 Essential (primary) hypertension; Z79.899 Other long term (current) drug therapy; Z88.1 Allergy status to other antibiotic agents; Z88.8 Allergy status to other drugs, medicaments and biological substances; Z91.018 Allergy to other foods; X99.1XXA Assault by knife, initial encounter; Y93.89 Activity, other specified; Y92.89 Other specified places as the place of occurrence of the external cause; Y99.8 Other external cause status
CPT/HCPCS: 12001; 90471; 90715; 99283; J2001

== ENCOUNTER 2021-04-24 04:32 | Emergency (ER) | payer OTHER ==
[~2021-04-24] VITALS: Ht 198.1 cm; Wt 124.7 kg
[~2021-04-24 04:32] MED LIST changes: +IBUP-2213 PO
[2021-04-24 04:40] VITALS: BP 129/73
--- NOTE | 2021-04-24 04:44 | NUR ---
PT TAKEN TO BED 3
[2021-04-24 04:59] VITALS: BP 129/73
--- NOTE | 2021-04-24 04:59 | NUR ---
Seen by LUCAS no nursing interventions needed for patient
--- NOTE | 2021-04-24 04:59 | NUR ---
Patient discharged with v/s stable. Written and verbal after care instructions given and explained. Patient verbalized understanding. Ambulatory with steady gait. ID band removed. All questions addressed prior to discharge. Advised to follow up with PMD. LUCAS Knott D/C patient.
== END 2021-04-24 04:59 | disposition home or self-care (01) ==
LOC: MED 04:32
DX: S61.211D Laceration without foreign body of left index finger without damage to nail, subsequent encounter (principal); J45.909 Unspecified asthma, uncomplicated; E11.9 Type 2 diabetes mellitus without complications; I10 Essential (primary) hypertension; Z88.1 Allergy status to other antibiotic agents; Z88.8 Allergy status to other drugs, medicaments and biological substances; Z91.018 Allergy to other foods; Z79.899 Other long term (current) drug therapy; X58.XXXD Exposure to other specified factors, subsequent encounter
CPT/HCPCS: 99281

== ENCOUNTER 2023-11-06 10:29 | Emergency (ER) | payer OTHER ==
[~2023-11-06] VITALS: Ht 198.1 cm; Wt 170.1 kg
[~2023-11-06 10:29] MED LIST changes: +CEPH-588 PO
[2023-11-06 11:03] VITALS: BP 118/66; PULSE 69; RESP 18; TEMP 97.1; O2SAT 99
[2023-11-06] MEDS ORDERED: CYCL-711 PO (12:24)
[2023-11-06] MEDS ORDERED: LID5T TP (12:24)
[2023-11-06] MEDS ORDERED: IBUP-2213 PO (12:24)
[2023-11-06] MEDS: HYDROcodone/APAP 5/325 MG 1 TAB TAB PO ONE (12:28)
[2023-11-06] MEDS: LIDOCAINE 5% 1 EA PATCH TP ONE (12:31)
[2023-11-06] MEDS: KETOROLAC 30 MG/ML VIAL IM ONE (12:33)
[2023-11-06 12:45] VITALS: BP 123/70; PULSE 64; RESP 18; TEMP 97.5; O2SAT 98
== END 2023-11-06 12:45 | disposition home or self-care (01) ==
LOC: MED 10:29
DX: S16.1XXA Strain of muscle, fascia and tendon at neck level, initial encounter (principal); S39.012A Strain of muscle, fascia and tendon of lower back, initial encounter; E11.9 Type 2 diabetes mellitus without complications; I10 Essential (primary) hypertension; R60.9 Edema, unspecified; J45.909 Unspecified asthma, uncomplicated; Z79.1 Long term (current) use of non-steroidal anti-inflammatories (NSAID); Z79.899 Other long term (current) drug therapy; Z88.1 Allergy status to other antibiotic agents; Z88.8 Allergy status to other drugs, medicaments and biological substances; X58.XXXA Exposure to other specified factors, initial encounter; Y93.89 Activity, other specified; Y92.811 Bus as the place of occurrence of the external cause; Y99.8 Other external cause status
CPT/HCPCS: 96372; 99283; J1885

== ENCOUNTER 2024-02-16 15:15 | Emergency (ER) | payer OTHER ==
[~2024-02-16] VITALS: Ht 195.6 cm; Wt 144.7 kg
[~2024-02-16 15:15] MED LIST changes: +CYCL-711 PO; +LID5T TP
[2024-02-16 15:18] VITALS: BP 131/78; PULSE 98; RESP 22; TEMP 98.6; O2SAT 99
[2024-02-16] MEDS ORDERED: CEPH-588 PO (15:46)
[2024-02-16] MEDS: cephALEXin 500 MG CAP PO ONE (15:55)
== END 2024-02-16 15:55 | disposition home or self-care (01) ==
LOC: MED 15:15
DX: S40.862A Insect bite (nonvenomous) of left upper arm, initial encounter (principal); J45.909 Unspecified asthma, uncomplicated; E11.9 Type 2 diabetes mellitus without complications; I10 Essential (primary) hypertension; Z79.899 Other long term (current) drug therapy; Z88.0 Allergy status to penicillin; Z91.018 Allergy to other foods; W57.XXXA Bitten or stung by nonvenomous insect and other nonvenomous arthropods, initial encounter; L03.114 Cellulitis of left upper limb; Y92.89 Other specified places as the place of occurrence of the external cause; Y93.89 Activity, other specified; Y99.8 Other external cause status
CPT/HCPCS: 99284